=== PATIENT | male | born 1980 | race Two or more races ===

== ENCOUNTER 2017-10-10 13:01 | Inpatient (IN) | payer OTHER ==
[2017-10-10] MEDS ORDERED: MIDAZOLAM 2 MG/2 ML VIAL ONE (14:59)
[2017-10-10] MEDS ORDERED: IV FLUID CONTINUATION 1,000 ML IV ONE (15:01)
[2017-10-10] MEDS ORDERED: fentaNYL (PF) 50 MCG/ML 2 ML AMP ONE (15:08)
[2017-10-10] MEDS ORDERED: fentaNYL (PF) 50 MCG/ML 2 ML AMP IV ONE (15:11)
[2017-10-10] MEDS ORDERED: LIDOCAINE 2% SYG (PF) 100 MG/5 ML MISCELLANE ONE (15:18)
[2017-10-10] MEDS ORDERED: BIVALIRUDIN BOLUS 250 MG/50 ML IV ONE (15:27)
[2017-10-10] MEDS ORDERED: BIVALIRUDIN 250 MG in SODIUM CHLORIDE 0.9% 40 ML IV ONE (15:28)
[2017-10-10] MEDS ORDERED: MIDAZOLAM 2 MG/2 ML VIAL IV ONE (15:31)
[2017-10-10] MEDS: NITROGLYCERIN 1000MCG/10ML SYRINGE INTRACORON ONE ×2 (15:36→15:51)
[2017-10-10] MEDS ORDERED: ADENOSINE 90 MG in SODIUM CHLORIDE 0.9% 60 ML IVP ONE (15:38)
[2017-10-10] MEDS ORDERED: PRASUGREL 10 MG TAB ONE (15:41)
[2017-10-10] MEDS ORDERED: PRASUGREL 10 MG TAB PO ONE (15:44)
[2017-10-10] MEDS ORDERED: IOPAMIDOL-370 125ML BTL INJ ONE (15:52)
[2017-10-10] MEDS ORDERED: IOPAMIDOL-370 100ML BTL INJ ONE (16:04)
[2017-10-10] MEDS ORDERED: MAG HYDROX/AL HYDROX/SIMETH 30 ML CUP PO PRN (16:18)
[2017-10-10] MEDS ORDERED: NITROGLYCERIN SL TABS 0.4 MG TAB SUBLINGUAL PRN (16:18)
[2017-10-10] MEDS ORDERED: ATROPINE SULFATE 0.1 MG/ML 10ML SYRINGE IV PRN (16:18)
[2017-10-10] MEDS ORDERED: RX INFO: IV CONTRAST WAS GIVEN 1 EACH MISC MISCELLANE PRN (16:18)
[2017-10-10] MEDS ORDERED: SODIUM CHLORIDE 0.9% 1,000 ML IV SCH (16:30)
--- NOTE | 2017-10-10 16:44 | PTCA ---
PERCUTANEOUSTRANS CORORONARY ANGIOGRAPHY Mr. Soto 37-year-old male known history of chronic tobacco use, hypertension, family history of premature coronary disease who presented to [facility] with symptoms of chest discomfort, underwent cardiac catheterization by Dr. VC Waddell and was found to have significant stenosis at the distal bifurcation of the PDA and PLV and there is a questionable spasm versus true lesion in the ostial segment. In view of that, recommendation made regarding further intervention and those recommendations were discussed with the patient who is in full understanding and agreement. PROCEDURE: The patient was brought to the laboratory [facility] in a fasting semi-sedated state. He was draped and prepped in conventional fashion. After receiving fentanyl and Benadryl, the plan was to exchange the sheath in the right femoral artery through the guidewire exchange technique to a new Kiswahili sheath. Incidentally, the wire was removed. Hemostasis was obtained with compression of the right groin. After securing the right groin, using Xylocaine anesthesia and Seldinger technique, a a 6-Kiswahili sheath was introduced in the left femoral artery. Selective left coronary angiography performed 6-Kiswahili FR4 guiding catheter. After obtaining images and receiving intracoronary nitroglycerin, a Therapydia Doppler flow wire was introduced into the right coronary artery and positioned distally. The patient received an infusion of adenosine per protocol and fractional flow reserve was calculated at 0.77. At that point, a 2.5 x 50 mm Xience Alpine stent was advanced, deployed and post dilated at 14 atmospheres. Following that the balloon was removed and a whisper J-wire was advanced into the PLV. Following that, a 3.0 x 8 mm Trek balloon was advanced and inflation of proximal segment of the stent was performed. Following that, the balloon was removed and a 2.25 x 12 mm Trek balloon was advanced in the PLV and an inflation was done at the ostium. Following that and after appropriate wait the balloon and the guidewire were withdrawn back in the guiding catheter. Images were obtained and repeated. Those images reveal stable successful stenting. At that point, the guiding catheter, the balloon and guidewire removed. The sheath was removed. Hemostasis was obtained with deployment of Angio-Seal. There was no immediate complication. Patient is returned to his room in stable condition. Of note, the patient received Angiomax per protocol as well as oral loading dose of Effient. He had chest discomfort with the inflation that resolved at the end procedure. He had no significant EKG changes. RESULTS: Successful stenting of the distal right coronary artery with reduction of stenosis from 60 to 70% down to 0% with an abnormal fractional flow reserve pre procedure. RECOMMENDATION: Patient will be continued on aspirin, Effient, beta blockers and statin. The importance of dual antiplatelet treatment and smoking cessation were discussed with the patient and his family who are in full understanding and agreement. DURATION PROCEDURE: 57 minutes. MMSTEW / DANEN: [id number] /
--- NOTE | 2017-10-10 16:50 | PTCA ---
PERCUTANEOUSTRANS CORORONARY ANGIOGRAPHY October 10, [address] Bailey: I had the pleasure of performing coronary angioplasty and stenting on Mr. Soto at [facility] on October 10 and a full copy of procedure note will be forwarded to you. In brief, he was found to have a lesion in distal right coronary artery that has a positive fractional flow reserve measurement and also received a drug-eluting stent. I am hopeful that this procedure will stabilize his status. I will keep you updated on his progress. Thank you again for allowing me to participate in his care. Please feel free to call for any questions. Sincerely, MMTIFFANIEL / IJN: [id number] /
[2017-10-10] MEDS ORDERED: ACETAMINOPHEN TAB 325 MG TAB PO PRN (18:41)
[2017-10-10] MEDS: HYDROcodone/APAP 5-325MG 1 EACH TAB PO PRN (19:08)
[2017-10-10] MEDS ORDERED: ATORVASTATIN 40 MG TAB PO SCH (21:00)
[2017-10-10] MEDS ORDERED: ZOLPIDEM 5 MG TAB PO PRN (21:00)
[2017-10-11] MEDS: HYDROcodone/APAP 5-325MG 1 EACH TAB PO PRN (00:14)
[2017-10-11 06:44] LABS: Anion Gap 10 mmol/L; Blood Urea Nitrogen 15 mg/dL (9-20); Calcium 8.7 mg/dL (8.4-10.2); Carbon Dioxide 27 mmol/L (22-30); Chloride 102 mmol/L (98-107); Glucose 96 mg/dL (74-99); Potassium 5.3 mmol/L (3.5-5.1); Sodium 139 mmol/L (137-145)
--- NOTE | 2017-10-11 08:12 | PN ---
PROGRESS NOTE Mr. Soto is a 37-year-old male who presented to [facility] with symptoms of chest discomfort, was found to have critical stenosis involving the distal right coronary artery. Was transferred to [facility], underwent fractional flow reserve measurement and stenting of the distal right coronary artery. He is doing well this morning. His breathing is stable. He denies any chest pain. No dizziness. No palpitation. He continues to be on aspirin once a day, Lipitor 4 mg daily, lisinopril 10 mg daily, Effient 10 mg daily. PHYSICAL EXAMINATION: Blood pressure 118/70 with a heart rate in the 60s. LUNGS: Clear. HEART: Regular rate and rhythm, S1, S2. No S3. No rub. ABDOMEN: Soft, nontender. EXTREMITIES: No edema, right and left groin, no hematoma. EKG no acute changes. LAB DATA: Revealed BUN and creatinine 15 and 0.95. IMPRESSION: 1. Status post stenting right coronary artery. 2. Hypertension. RECOMMENDATION: Patient will be discharged home today and followed as an outpatient with Dr. Waddell. TINO / PATRICIA: [id number] /
[2017-10-11 08:57] VITALS: BP 135/94; PULSE 70; RESP 16; TEMP 98
[2017-10-11] MEDS ORDERED: PRASUGREL 10 MG TAB PO SCH (09:00)
[2017-10-11] MEDS ORDERED: METOPROLOL SUCCINATE (ER) 25 MG TAB.ER.24H PO SCH (09:00)
[2017-10-11] MEDS ORDERED: ASPIRIN 81 MG PO SCH (09:00)
[2017-10-11] MEDS ORDERED: LISINOPRIL 10 MG TAB PO SCH (09:00)
[2017-10-11 11:49] VITALS: BMI 27.3
--- NOTE | 2017-10-11 17:01 | P.HPIM ---
History of Present Illness 37-year-old gentleman was transferred from [facility] after he presented there with non-ST elevation microinfarction patient underwent cardiac catheterization and stenting. Please refer to cardiology dictation for further details of cardiac catheterization. Patient does smoke not willing to quit smoking but will make K at nighttime then wean it off. Review of Systems REVIEW OF SYSTEMS: CONSTITUTIONAL: No fever, no malaise, no fatigue. HEENT: No recent visual problems or hearing problems. Denied any sore throat. CARDIOVASCULAR: No chest pain, orthopnea, PND, no palpitations, no syncope. PULMONARY: No shortness of breath, no cough, no hemoptysis. GASTROINTESTINAL: No diarrhea, no nausea, no vomiting, no abdominal pain. Normoactive bowel sounds. NEUROLOGICAL: No headaches, no weakness, no numbness. HEMATOLOGICAL: Denies any bleeding or petechiae. GENITOURINARY: Denies any burning micturition, frequency, or urgency. MUSCULOSKELETAL/RHEUMATOLOGICAL: Denies any joint pain, swelling, or any muscle pain. ENDOCRINE: Denies any polyuria or polydipsia. The rest of the 14-point review of systems is negative. Past Medical History History of Any Multi-Drug Resistant Organisms: None Reported Past Surgical History: Appendectomy Additional Past Surgical History / Comment(s): meniscus repair x2 Past Anesthesia/Blood Transfusion Reactions: No Reported Reaction Past Psychological History: ADD/ADHD Smoking Status: Current every day smoker Past Alcohol Use History: None Reported Past Drug Use History: None Reported Medications and Allergies Home Medications Medication Instructions Recorded Confirmed Type Dextroamphetamine/Amphetamine 15 mg PO QAM 10/10/17 10/10/17 History [Adderall Xr] Aspirin 81 mg PO DAILY chew 10/11/17 Rx Atorvastatin [Lipitor] 40 mg PO HS #90 tab 10/11/17 Rx Lisinopril [Zestril] 10 mg PO DAILY #90 tab 10/11/17 Rx Metoprolol Succinate (ER) [Toprol 25 mg PO DAILY #30 tab 10/11/17 Rx XL] Nitroglycerin Sl Tabs [Nitrostat] 0.4 mg SUBLINGUAL Q5M PRN #25 tab 10/11/17 Rx Prasugrel [Effient] 10 mg PO DAILY #90 tab 10/11/17 Rx Allergies Allergy/AdvReac Type Severity Reaction Status Date / Time acetaminophen [From Vicodin] AdvReac Itching Verified 10/10/17 20:13 hydrocodone [From Vicodin] AdvReac Itching Verified 10/10/17 20:13 Physical Exam Vitals: Vital Signs Temp Pulse Resp BP Pulse Ox 10/11/17 09:00 98 10/11/17 08:00 98 F 70 16 135/94 98 10/11/17 04:00 97 18 135/90 98 10/11/17 03:57 56 L 18 10/11/17 00:00 70 18 118/76 97 10/10/17 20:00 97.7 F 66 18 131/81 97 10/10/17 18:19 97.8 F 70 18 110/68 97 10/10/17 17:15 20 142/62 10/10/17 17:00 20 143/63 Intake and Output 10/11/17 10/11/17 10/11/17 06:59 14:59 22:59 Intake Total 240 Output Total 300 900 Balance -300 -660 Intake: Oral 240 Output: Urine 300 900 Other: Voiding Method Urinal # Voids 1 Weight 88.9 kg 88.9 kg PHYSICAL EXAMINATION: GENERAL: The patient is alert and oriented x3, not in any acute distress. Well developed, well nourished. HEENT: Pupils are round and equally reacting to light. EOMI. No scleral icterus. No conjunctival pallor. Normocephalic, atraumatic. No pharyngeal erythema. No thyromegaly. CARDIOVASCULAR: S1 and S2 present. No murmurs, rubs, or gallops. PULMONARY: Chest is clear to auscultation, no wheezing or crackles. ABDOMEN: Soft, nontender, nondistended, normoactive bowel sounds. No palpable organomegaly. MUSCULOSKELETAL: No joint swelling or deformity. EXTREMITIES: No cyanosis, clubbing, or pedal edema. NEUROLOGICAL: Gross neurological examination did not reveal any focal deficits. SKIN: No rashes. Results CBC & Chem 7: 10/11/17 05:32 Labs: Abnormal Lab Results - Last 24 Hours (Table) 10/11/17 Range/Units 05:32 Potassium 5.3 H (3.5-5.1) mmol/L Thrombosis Risk Factor Assmnt - Choose All That Apply Any of the Below Risk Factors Present?: No Other Risk Factors: No Other congenital or acquired thrombophilia - If yes, enter type in comment: No Thrombosis Risk Factor Assessment Level: Very Low Risk Assessment and Plan Plan: -Non-ST elevation microinfarction: Status post cardiac catheterization and stenting please refer to cardiology dictation for further he does of cath. -Mild hyperkalemia with potassium of 5.4 patient was taking lisinopril 40 mg cardio educated down to 10 mg hopefully his potassium will be okay since we decreased the lisinopril. I'm repeating a basic metabolic profile in 2 days and also asked patient not to take lisinopril tomorrow. -Nicotine abuse: Counseling was provided
--- NOTE | 2017-10-11 17:02 | P.DS ---
Providers Date of admission: 10/10/17 13:34 Attending physician: Diya Leavitt MD Consults: 10/10/17 16:18 Consult Physician Routine Consulting Provider: [facility] Consult Reason/Comments: Post Interventional patient Do you want consulting provider notified?: Already Contacted Placement Type Exists?: Yes Primary care physician: Stated None Hospital Course: Please refer to my HPI Patient Condition at Discharge: Stable Plan - Discharge Summary New Discharge Prescriptions: New Aspirin 81 mg PO DAILY chew Atorvastatin [Lipitor] 40 mg PO HS #90 tab Lisinopril [Zestril] 10 mg PO DAILY #90 tab Nitroglycerin Sl Tabs [Nitrostat] 0.4 mg SUBLINGUAL Q5M PRN #25 tab PRN Reason: Chest Pain Prasugrel [Effient] 10 mg PO DAILY #90 tab Metoprolol Succinate (ER) [Toprol XL] 25 mg PO DAILY #30 tab Discontinued Lisinopril 40 mg PO DAILY No Action Dextroamphetamine/Amphetamine [Adderall Xr] 15 mg PO QAM Discharge Medication List Dextroamphetamine/Amphetamine [Adderall Xr] 15 mg PO QAM 10/10/17 [History] Aspirin 81 mg PO DAILY chew 10/11/17 [Rx] Atorvastatin [Lipitor] 40 mg PO HS #90 tab 10/11/17 [Rx] Lisinopril [Zestril] 10 mg PO DAILY #90 tab 10/11/17 [Rx] Metoprolol Succinate (ER) [Toprol XL] 25 mg PO DAILY #30 tab 10/11/17 [Rx] Nitroglycerin Sl Tabs [Nitrostat] 0.4 mg SUBLINGUAL Q5M PRN #25 tab 10/11/17 [Rx ] Prasugrel [Effient] 10 mg PO DAILY #90 tab 10/11/17 [Rx] Follow up Appointment(s)/Referral(s): Camden Hawthorne MD [STAFF PHYSICIAN] - 10/19/17 11:00 am Ambulatory/Diagnostic Orders: Basic Metabolic Panel [LAB.AMB] Time Frame: 2 Days, Location: None Selected Patient Instructions/Handouts: *Surgery [facility] - After Heart Catheterization - Sales Account Leader Instructions, Heart Healthy Diet (DC), Coronary Intravascular Stent Placement (DC) Activity/Diet/Wound Care/Special Instructions: Hold dose of lisinopril on October 12, resume October 13. Discharge Disposition: HOME SELF-CARE
== END 2017-10-11 12:59 | disposition home or self-care (01) | DRG 247 ==
LOC: 6SEL 13:34
PROVIDERS: ADMIT Internal Medicine; ATTEND Internal Medicine
PROC: 027034Z Dilation of Coronary Artery, One Artery with Drug-eluting Intraluminal Device, Percutaneous Approach (ICD-10-PCS; principal; 2017-10-10 14:30)
PROC: 4A033BC Measurement of Arterial Pressure, Coronary, Percutaneous Approach (ICD-10-PCS; 2017-10-10 14:30)
DX: I21.4 Non-ST elevation (NSTEMI) myocardial infarction (principal); E87.5 Hyperkalemia; I25.10 Atherosclerotic heart disease of native coronary artery without angina pectoris; F90.9 Attention-deficit hyperactivity disorder, unspecified type; I10 Essential (primary) hypertension; F17.210 Nicotine dependence, cigarettes, uncomplicated; Z71.6 Tobacco abuse counseling; Z79.82 Long term (current) use of aspirin; Z79.899 Other long term (current) drug therapy; Z88.6 Allergy status to analgesic agent; Z88.5 Allergy status to narcotic agent
CPT/HCPCS: 80048; 85347; 93571; 94760